=== PATIENT | male | born 1975 | race Caucasian/White ===

== ENCOUNTER 2016-12-30 14:32 | Emergency (ER) | payer BC ==
[2016-12-30 17:29] VITALS: BP 153/99
--- NOTE | 2016-12-30 20:26 | UC ---
Shai Robertson SooYoung, scribed for Wm Silver MD on 12/30/16 at 1756 . Skin Complaint HPI - HPI Summary HPI Summary: A 41 y/o M presents to [facility] [place] with rash from possible insect bite initial onset approx one week ago. Three days late, the erythematous area has grown in size to approx 4.5 inches across. He saw his PCP the follow morning, and they have him Doxy. He's been taking Doxy for three days, but the rash has not been responsive, he states the erythema has even enlarged. Associated sx: red streaking, pruritic; fever and chills two days ago since resolved. Denies: pain. PCP was unable to see pt again this week. Pt notes having ticks in his yard, and being outdoors in wooded areas often. - History of Current Complaint Chief Complaint: [facility] Time Seen by Provider: 12/30/16 17:46 Stated Complaint: BUG BITE INF-DOXY RESIST Hx Obtained From: Patient Onset/Duration: Gradual Onset, Lasting Days, Still Present Timing: Constant Onset Severity: Mild Current Severity: Mild Pain Intensity: 2 Pain Scale Used: 0-10 Numeric Location: Discrete - back Character: Pruritus, Redness Associated Signs & Symptoms: Positive: Fever - resolved, Chills - resolved, Red Streaks - Allergy/Home Medications Allergies/Adverse Reactions: Allergies Allergy/AdvReac Type Severity Reaction Status Date / Time Codeine Allergy See Comment Verified 12/30/16 15:38 Home Medications: Home Medications DOXYcycline CAP(*) [DOXYcycline 100MG CAP(*)] 100 mg PO BID 12/30/16 [History Confirmed 12/30/16] Ibuprofen [Advil] 400 mg PO 12/30/16 [History] Review of Systems Constitutional: Fever, Chills Skin: Rash - erythematous and pruritic area with red streaks on back All Other Systems Reviewed And Are Negative: Yes PMH/Surg Hx/FS Hx/Imm Hx Previously Healthy: Yes - neg: COPD, - Surgical History Surgical History: None - Social History Alcohol Use: Occasionally Substance Use Type: None Smoking Status (MU): Never Smoked Tobacco Physical Exam Triage Information Reviewed: Yes Appearance: Well-Appearing, No Pain Distress Vital Signs: Initial Vital Signs Temp 99.2 F 12/30/16 15:32 Pulse 67 12/30/16 15:32 Resp 18 12/30/16 15:32 BP 143/100 12/30/16 15:32 Pulse Ox 99 12/30/16 15:32 Vital Signs Reviewed: Yes Eye Exam: Normal - EOMI, GENEVIEVE ENT: Positive: Normal ENT inspection Neck: Positive: Supple, Nontender Respiratory: Positive: Lungs clear, Normal breath sounds Cardiovascular: Positive: RRR Abdomen Description: Positive: Nontender, Soft Bowel Sounds: Positive: Present Musculoskeletal Exam: Normal Musculoskeletal: Positive: Strength Intact Neurological Exam: Normal - A&Ox3; sensory/motor intact Psychological Exam: Normal - mood/affect appropriate Skin: Positive: rashes - 14cm erythamtous, blanching, centrally darkened area, no foreign body with tiny 4mm blister. Course/Dx - Course Course Of Treatment: Hypertensive BP reading; patient referred to PCP within 1 day-4 wks for follow-up. Pt medications reviewed this visit. CELLULITIS VERSES LYME. CLINDA ADDED TO DOXY. - Diagnoses Provider Diagnoses: CELLULITIS. Elevated blood pressure without diagnosis of hypertension Discharge - Discharge Plan Condition: Stable Disposition: HOME Prescriptions: Clindamycin Cap(NF) [Cleocin 300 mg Cap(NF)] 300 mg PO Q6H #40 cap Patient Education Materials: Cellulitis (ED) Referrals: Davion Eason MD [Primary Care Provider] - (Follow up withing 1-4 weeks regarding your high blood pressure reading today. ) Additional Instructions: Your blood pressure reading today was 143/100, which is HYPERTENSIVE. Follow-up with your primary care provider within 4 weeks for blood pressure readings and further evaluation. FOLLOW UP WITH YOUR DOCTOR. GET RECHECKED FOR ANY WORSENING OF YOUR CONDITION OR QUESTIONS OR CONCERNS. The documentation as recorded by the Shai elizabeth SooYoung accurately reflects the service I personally performed and the decisions made by me, Wm Silver MD.
== END 2016-12-30 18:00 | disposition home or self-care (01) ==
LOC: UCEAST 14:32
DX: L03.312 Cellulitis of back [any part except buttock and flank] (principal); R03.0 Elevated blood-pressure reading, without diagnosis of hypertension
CPT/HCPCS: 99212; G0463